=== PATIENT | male | born 1990 | race Two or more races ===

== ENCOUNTER 2018-09-14 15:08 | Emergency (ER) | payer SELFPAY ==
[~2018-09-14] VITALS: Ht 180.3 cm; Wt 102.1 kg
[2018-09-14 15:17] VITALS: BP 133/98
[2018-09-14] MEDS ORDERED: Norco 5mg/325mg tab ORAL ONE (15:30)
--- NOTE | 2018-09-14 16:15 | Emergency Room Report ---
History of Present Illness General Chief Complaint: Lower Extremity Injury Source: Patient Present Illness HPI 27-year-old male presents to the emergency department complaining of 10 out of 10 in severity pain to the right ankle status post falling into a Jacuzzi after stepping on a type that was covering it. Patient denies hitting his head he denies loss of consciousness denies midline neck or back pain. Patient reports that the Jacuzzi was full of water so it did break his fall partially. Patient states he heard a big pop when the injury occurred. Patient states that pain is exacerbated upon attempts to walk or bear weight he states that he is unable to bear weight due to pain. Patient denies previous injury to this extremity.Denies numbness tingling or loss of sensation or gross motor movements of the extremities, incontinence of bowel or bladder. Denies CP, Palpitations, LOC, AMS, dizziness, Changes in Vision, weakness or a sudden severe headache. Allergies: Coded Allergies: No Known Allergies (Unverified , 09/14/18) Patient History Past Medical History: see triage record Past Surgical History: none Pertinent Family History: none Immunizations: UTD Reviewed Nursing Documentation: PMH: Agreed; PSxH: Agreed Nursing Documentation-PMH Past Medical History: No Stated History Review of Systems All Other Systems: negative except mentioned in HPI Physical Exam Vital Signs Date Time Temp Pulse Resp B/P (MAP) Pulse Ox O2 Delivery O2 Flow Rate FiO2 09/14/18 15:17 98.5 91 18 133/98 98 Room Air 98.4 Sp02 EP Interpretation: reviewed, normal General Appearance: alert, GCS 15, non-toxic, moderate distress Head: normocephalic, atraumatic Eyes: bilateral eye normal inspection, bilateral eye PERRL ENT: hearing grossly normal, normal voice Neck: full range of motion Respiratory: lungs clear, normal breath sounds, speaking full sentences Cardiovascular #1: regular rate, rhythm, normal capillary refill Musculoskeletal: back normal, normal range of motion, tender - Lateral aspect of the right ankle, swelling noted as well, NVI Neurologic: alert, oriented x3, responsive, motor strength/tone normal, sensory intact, speech normal, grossly normal Psychiatric: judgement/insight normal Skin: normal color, no rash, warm/dry, well hydrated Medical Decision Making PA Attestation Dr. burton is my supervising Physician whom patient management has been discussed with. Diagnostic Impression: Primary Impression: Avulsion fracture of right ankle Qualified Codes: S82.891A - Other fracture of right lower leg, initial encounter for closed fracture ER Course 27-year-old male presents to the emergency department complaining of 10 out of 10 in severity pain to the right ankle status post falling into a Jacuzzi after stepping on a type that was covering it. Patient denies hitting his head he denies loss of consciousness denies midline neck or back pain. Patient reports that the Jacuzzi was full of water so it did break his fall partially. Patient states he heard a big pop when the injury occurred. Patient states that pain is exacerbated upon attempts to walk or bear weight he states that he is unable to bear weight due to pain. Patient denies previous injury to this extremity.Denies numbness tingling or loss of sensation or gross motor movements of the extremities, incontinence of bowel or bladder. Denies CP, Palpitations, LOC, AMS, dizziness, Changes in Vision, weakness or a sudden severe headache. Ddx considered but are not limited to Fracture, dislocation, contusion, Sprain/ Strain/Spasm. Vital signs: are WNL, pt. is afebrile H&PE are most consistent with musculoskeletal injury will perform imaging to r/ o fractures/dislocations. ORDERS: - X-ray Right ankle 3 views - POSITIVE FOR AVULSION FX, Negative Dislocation , or significant soft tissue injury, per preliminary read in ED, and signed by GAMAL Macias, my supervising physician has reviewed, and agrees with my interpretation. ED INTERVENTIONS: - [place] PO -Stirrup air Splint applied to the right ankle by nanotechnologist. Pt. remains neurovascularly intact. -Patient is provided with crutches and instructed on their use DISCHARGE: At this time pt. is stable for d/c to home. Will provide printed patient care instructions, and any necessary prescriptions. Care plan and follow up instructions have been discussed with the patient prior to discharge. Other X-Ray Diagnostic Results Other X-Ray Diagnostic Results : X-Ray ordered: Right ankle # of Views/Limited Vs Complete: 3 View Indication: Pain EP Interpretation: Yes GAMAL Xray: Interpretation reviewed, by supervising MD, and agrees with findings. Interpretation: no dislocation, no soft tissue swelling, no fractures Impression: No acute disease Electronically Signed by: Raquel Macias PA-C Last Vital Signs Date Time Temp Pulse Resp B/P (MAP) Pulse Ox O2 Delivery O2 Flow Rate FiO2 09/14/18 15:40 98.5 09/14/18 15:17 91 18 133/98 98 Room Air Disposition: HOME, SELF-CARE Condition: Stable Scripts Hydrocodone Bit/Acetaminophen 5-325* (NORCO 5-325*) 1 Each Tablet 1 TAB ORAL Q6H PRN for For Pain, #10 TAB 0 Refills for break through pain. Prov: Raquel Macias 09/14/18 Ibuprofen* (MOTRIN*) 600 Mg Tablet 600 MG ORAL THREE TIMES A DAY, #30 TAB 0 Refills Prov: Raquel Macias 09/14/18 Patient Instructions: Ankle Fracture, [id number] Additional Instructions: Take medications as directed. Follow up with an EXTRACTIVE METALLURGIST in 3-5 days, even if your symptoms have resolved. --Please review list of primary care clinics, if you do not already have a primary care provider who can give you an Orthopedic Referral. Return sooner to ED if new symptoms occur, or current symptoms become worse. Do not drink alcohol, drive, or operate heavy machinery while taking [place] as this may cause drowsiness. - Please note that this Emergency Department Report was dictated using [employer] laboratory technician technology software, occasionally this can lead to erroneous entry secondary to interpretation by the dictation equipment. Raquel Macias Sep 14, 2018 16:14
[2018-09-14] MEDS ORDERED: NORCO 5-325 TA1 EACH ORAL (16:27)
[2018-09-14] MEDS ORDERED: IBUPROFEN600 MG ORAL (16:27)
--- NOTE | 2018-09-15 10:57 | Diagnostic Imaging Report ---
Indication: ankle pain/trauma Comparison: None Findings: 3 views of the right ankle obtained. No acute fracture, malalignment, periostitis, or osteochondral defects are identified. Soft tissues in the lateral part ankle noted. Small well-corticated ossicle noted just below the lateral malleolus which may be an old injury. Impression: Negative for acute injury
== END 2018-09-14 16:45 | disposition home or self-care (01) ==
LOC: EMR 16:45
DX: S82.891A Other fracture of right lower leg, initial encounter for closed fracture (principal); W17.89XA Other fall from one level to another, initial encounter; Y93.89 Activity, other specified; Y92.9 Unspecified place or not applicable
CPT/HCPCS: 99283